=== PATIENT | female | born 1965 | race Caucasian/White ===

== ENCOUNTER 2018-05-15 13:27 | Inpatient (IN) | payer OTHER ==
[2018-05-12 14:45] LABS: BASOPHILS % 0.4 % (0.0-1.0); EOSINOPHILS # (AUTO) 0.2 (0.0-0.4); EOSINOPHILS % 3.1 % (0.0-6.0); HEMATOCRIT 42.4 % (34.2-44.1); HEMOGLOBIN 14.7 g/dL (12.0-16.0); LYMPHOCYTES % 27.4 % (18.0-39.1); MEAN CORPUSCULAR HEMOGLOBIN 32.3 pg (28-32); MEAN CORPUSCULAR HGB CONC 34.7 g/dL (31-35); MEAN CORPUSCULAR VOLUME 93.2 fL (81-99); MONOCYTES # (AUTO) 0.5 (0.2-0.8); MONOCYTES % 6.9 % (4.4-11.3); NEUTROPHILS # (AUTO) 4.4 (2.1-6.9); NEUTROPHILS % 61.9 % (38.7-80.0); PLATELET COUNT 190 x10e3/uL (140-360); RED BLOOD COUNT 4.55 x10e6/uL (3.6-5.1); RED CELL DISTRIBUTION WIDTH 11.9 % (11.7-14.4)
[~2018-05-15] VITALS: Ht 160 cm; Wt 97.5 kg
[~2018-05-15 13:27] MED LIST: CARVEDILOL12.5 MG PO; DOXAZOSIN PO; ESMOLOL HCL 100MG/10ML 10 MG/ML VIAL ONE; FIORICET PO; ISOSORBIDE DINI30 MG PO; LIPITOR40 MG PO; LOSARTAN PO; NORCO 10-325 T1 EACH PO; PRISTIQ ER100 MG PO; PROPOFOL IV EMULSION 10 MG/ML 50 ML VIAL ONE; SEROQUEL200 MG PO; XARELTO20 MG PO; XTAMPZA PO
[2018-05-15] MEDS ORDERED: FENTANYL CITRATE/PF 100MCG/2 ML INJ ONE ×2 (13:38→17:17)
[2018-05-15] MEDS ORDERED: MIDAZOLAM HCL 5MG/ML 2ML VIAL ONE (13:38)
[2018-05-15] MEDS ORDERED: MIDAZOLAM HCL 2 MG/2 ML VIAL ONE (13:38)
[2018-05-15] MEDS ORDERED: HYDROMORPHONE 2MG/ML 2 MG/ML ML ONE (17:39)
[2018-05-15] MEDS ORDERED: AMIODARONE HCL 900 MG in DEXTROSE 5 % 500ML BOTTLE 500 ML IV SCH (18:30)
[2018-05-15] MEDS ORDERED: AMIODARONE HCL 150 MG in DEXTROSE 5% 100ML 100 ML IV ONE (18:30)
[2018-05-15] MEDS ORDERED: AMIODARONE HCL 900 MG in DEXTROSE 5 % 500ML BOTTLE 500 ML IV ONE (18:30)
--- NOTE | 2018-05-15 18:31 | Operative Report ---
DATE OF PROCEDURE: May 15, 2018 REFERRING PHYSICIAN: Dr. Liv Ruiz. PROCEDURES PERFORMED 1. Esophagogastroduodenoscopy with biopsies. 2. Colonoscopy with polypectomy. INDICATIONS FOR EGD: Acid reflux. INDICATIONS FOR COLONOSCOPY: Colorectal cancer screening. MEDICATION: Patient was done under MAC. Please see anesthesiologist's note. PROCEDURE: With patient in left lateral decubitus position, the flexible fiberoptic Olympus gastroscope was introduced into the esophagus under direct visualization without any difficulty. There was some patchy erythema noted in distal esophagus. A minute nodule was noted at the GE junction that was biopsied. The scope was then advanced with ease into the stomach traversing a small sliding hiatal hernia. Mucosa overlying the antrum and the body revealed some patchy erythema and noit-vj-wzffndvi edema and biopsies were obtained and sent to stain for H. pylori. Pylorus appeared to be of normal contour and shape, was intubated with ease and the scope was advanced all the way to the 2nd portion of the duodenum. Biopsies were obtained from the proximal 2nd portion and the duodenal bulb to rule out sprue. The scope was then withdrawn back into the stomach and retroflexed. Mucosa overlying the fundus and the cardia appeared to be within normal limits. The scope was then straightened out and was subsequently withdrawn. Patient tolerated the procedure well. IMPRESSION 1. Mild distal esophagitis. 2. Minute nodule at gastroesophageal junction, biopsied. 3. Small sliding hiatal hernia. 4. Gastritis, biopsied. Biopsies sent to stain for Helicobacter pylori. 5. Rule out sprue. PLAN: Follow up histology. Initiate Protonix 40 mg 1 p.o. q.a.m. a.c. Patient was then turned around and after adequate lubrication of the anal canal, a flexible fiberoptic Olympus colonoscope was inserted into the rectum and advanced all the way to the cecum. Procedure was somewhat difficult as patient was not adequately sedated for the most part and at times was thrashing during the procedure. Visualization of the colon was suboptimal. The scope was then withdrawn slowly whatever was visualized. The mucosa overlying the cecum and the ascending colon appeared to be within normal limits. Two polyps were snared from the transverse colon. The descending appeared to be within normal limits. The sigmoid colon polyp was hot biopsied. The rectum grossly appeared to be within normal limits. The scope was then retroflexed into the distal rectum and small internal hemorrhoids were noted, none of which was actively bleeding. The scope was then straightened out and was subsequently withdrawn. Patient tolerated the procedure well. IMPRESSION 1. Examination was suboptimal as patient could not be sedated well and at times was thrashing around during the procedure. Visualization of the colon was suboptimal. 2. Transverse colon polyps x2, snared. 3. Sigmoid colon polyp x1, hot biopsied. 4. Internal hemorrhoids, none actively bleeding. PLAN: Follow up histology. Initiate high-fiber low-fat diet. Initiate high-fiber supplement. Patient might benefit from a followup colonoscopy in 3 years. Job#: [id number] MARCIA cc:LIV RUIZ MD
[2018-05-15 19:00] VITALS: BP_SYST 131; BP_SYST 133; BP_DIAS 101; BP_DIAS 73
[2018-05-15] MEDS ORDERED: HYDROCODONE/APAP 10MG-325MG TAB PO PRN (19:15)
[2018-05-15 19:30] VITALS: BP 133/72
[2018-05-15] MEDS ORDERED: HOME MEDICATION--PATIENTS OWN PO SCH ×2 (19:30)
[2018-05-15] MEDS ORDERED: ACETAMIN/BUTALBITAL/CAFFEINE TAB PO PRN (19:30)
[2018-05-15] MEDS ORDERED: CARVEDILOL 12.5 MG TAB PO ONE (19:30)
[2018-05-15 20:00] VITALS: BP 133/73
[2018-05-15 21:00] VITALS: BP 146/132
[2018-05-15] MEDS ORDERED: QUETIAPINE FUMARATE 100 MG TAB PO SCH (21:00)
[2018-05-15] MEDS ORDERED: RIVAROXABAN 20 MG TABLET PO SCH (21:00)
[2018-05-15] MEDS: HOME MEDICATION--PATIENTS OWN PO SCH (21:00)
[2018-05-15] MEDS ORDERED: ATORVASTATIN 40 MG TAB PO SCH (21:00)
[2018-05-15 22:00] VITALS: BP 146/71
[2018-05-15 23:00] VITALS: BP 93/68
[2018-05-16] VITALS (19 sets, daily range): BP systolic 78–129; BP diastolic 42–102
[2018-05-16] MEDS ORDERED: AMIODARONE HCL 900 MG in DEXTROSE 5 % 500ML BOTTLE 500 ML IV SCH (00:30)
[2018-05-16] MEDS ORDERED: HYDROCODONE/APAP 10MG-325MG TAB PO PRN (07:15)
--- NOTE | 2018-05-16 08:33 | History and Physical ---
HPI: Patient is Holli Alvarez, who was undergoing a colonoscopy and patient after colonoscopy procedure developed atrial fibrillation with rapid ventricular response. Patient was admitted to the ICU for amiodarone drip and continuous care post colonoscopy. PAST MEDICAL HISTORY: History of hyperlipidemia, history of hypertension, history of AFib with RVR, history of chronic low back pain, history of bipolar disease, and history of strokes. The patient has had 7 strokes in total and patient had been recently put on cardiac monitoring and was found to have transient AFib and was started on Xarelto. MEDICATIONS: Patient's medications at home are; 1. Atorvastatin 40 mg. 2. Carvedilol 12.5 mg twice a day. 3. History of taking Pristiq ER 100 mg daily. 4. Hydrocodone 10/325 for continuous low back pain. 5. Isosorbide dinitrate. 6. Quetiapine. 7. Xarelto 20 mg for AFib. 8. Doxazosin. 9. Fioricet for headaches. 10. Losartan also. 11. The patient also takes Xtampza daily. PAST SURGICAL HISTORY: History of appendectomy, history of hysterectomy, and history of bone tumors removed. FAMILY HISTORY: History of stomach cancer in mother and also history of colon cancer in the family. SOCIAL HISTORY: Currently nonsmoker. No EtOH. No IV drug abuse. REVIEW OF SYSTEMS: Negative for chest pain. Positive for palpitations after the procedure. No nausea, vomiting, or diarrhea. No constipation. No rectal bleeding. No hematochezia, no hematemesis either. PHYSICAL EXAMINATION VITAL SIGNS: Temperature is afebrile, respirations of 20, blood pressure is 126/69, pulse oximetry 100%. Patient is running 74, normal sinus rhythm at this time. The patient converted yesterday with amiodarone. HEENT: Normocephalic, atraumatic. Pupils react to light and accommodation. CVS: S1, S2 normal. Regular rate and rhythm. ABDOMEN: Nontender, nondistended. EXTREMITIES: No clubbing, no cyanosis, and no edema. ASSESSMENT: Status post endoscopy with atrial fibrillation with rapid ventricular response. PLAN: Patient was on amiodarone drip, is off of it right now. The plan is to restart her home medications including a beta-blockade and her Xarelto. Continue with pain management for low back pain. Possible discharge today on beta-blockade and Xarelto. Patient will follow up with her sales order processor as an outpatient. Her sales order processor is in the [facility] area according to her. We will continue to monitor the patient. Further recommendations per clinical course. Job#: [id number] KARINE
[2018-05-16] MEDS ORDERED: CARVEDILOL 12.5 MG TAB PO SCH (09:00)
[2018-05-16] MEDS ORDERED: DESVENLAFAXINE SUCCINATE 50 MG TAB.SR.24H PO SCH ×2 (09:00)
[2018-05-16] MEDS ORDERED: ISOSORBIDE DINITRATE 20 MG TAB PO SCH (09:00)
[2018-05-16] MEDS ORDERED: NON-FORMULARY MEDICATION (Isosorbide Dinitrate 30 MG) PO SCH (09:00)
[2018-05-16] MEDS ORDERED: ISOSORBIDE MONONITRATE 30 MG TAB CR PO SCH (09:00)
[2018-05-16] MEDS ORDERED: DESVENLAFAXINE SUCCINATE 100 MG PO SCH (09:00)
[2018-05-16] MEDS: DOXAZOSIN MESYLATE 2 MG TAB PO SCH ×2 (09:04→16:19)
[2018-05-16] MEDS: CARVEDILOL 12.5 MG TAB PO SCH ×2 (09:05→16:19)
[2018-05-16] MEDS: HOME MEDICATION--PATIENTS OWN PO SCH (10:45)
[2018-05-16] MEDS ORDERED: LOSARTAN-HCTZ1 EAC1 PO (11:34)
[2018-05-16 16:26] LABS: ALANINE AMINOTRANSFERASE 12 IU/L (0-55); ALBUMIN 3.5 g/dL (3.5-5.0); ALBUMIN/GLOBULIN RATIO 1.3 (0.8-2.0); ALKALINE PHOSPHATASE 93 IU/L (40-150); ANION GAP 15.1 mmol/L (8-16); BLOOD UREA NITROGEN 13 mg/dL (7-26); BUN/CREATININE RATIO 16 (6-25); CALCIUM 9.2 mg/dL (8.4-10.2); CARBON DIOXIDE 30 mmol/L (22-29); CHLORIDE 98 mmol/L (98-107); CREATININE, SERUM 0.81 mg/dL (0.57-1.11); EST GLOMERULAR FILTRATION RATE > 60 ML/MIN (60-); GLUCOSE 99 mg/dL (74-118); MAGNESIUM 1.8 MG/DL (1.3-2.1); POTASSIUM 3.1 mmol/L (3.5-5.1); SODIUM 140 mmol/L (136-145)
[2018-05-16 16:45] LABS: THYROID STIMULATING HORMONE 0.635 uIU/mL (0.350-4.940)
[2018-05-16] MEDS ORDERED: POTASSIUM CHLORIDE 20 MEQ TAB CR PO NR (17:00)
[2018-05-16] MEDS ORDERED: MAGNESIUM OXIDE 400 MG TAB PO NR (17:00)
--- NOTE | 2018-05-16 18:17 | Consultation ---
DATE OF CONSULTATION: CARDIOLOGY CONSULTATION REASON FOR CONSULTATION: Atrial fibrillation. HISTORY OF PRESENT ILLNESS: This is a 53-year-old woman with history of hypertension, hyperlipidemia, diabetes mellitus, paroxysmal atrial fibrillation, currently with an implantable loop recorder in place, chronic migraines, chronic pain, anxiety, and depression, who presented as an outpatient for endoscopy. After colonoscopy, she developed atrial fibrillation with rapid ventricular response and was initiated on amiodarone infusion. She is on chronic Xarelto for anticoagulation needs and stroke risks reduction. The patient converted to normal sinus rhythm overnight and amiodarone infusion was discontinued. She is currently feeling well. Denies any cardiovascular symptoms. She denies any chest pain, palpitations, shortness of breath, PND, orthopnea, or syncopal events. She formally was seen by a prior cut pressman; however, she states that she no longer wants to follow with them at this point in time. She denies any history of myocardial infarctions, heart failure, or valvular heart disease. She has not undergone any procedures for her atrial fibrillation such as cardioversion or cardiac ablations. REVIEW OF SYSTEMS: Twelve-point review of systems was conducted and was negative except as above in the HPI. PAST MEDICAL HISTORY: Hypertension, hyperlipidemia, chronic migraines, anxiety, depression, paroxysmal atrial fibrillation. PAST SURGICAL HISTORY: Endoscopy, colonoscopy, appendectomy. FAMILY HISTORY: No premature coronary artery disease or sudden cardiac . SOCIAL HISTORY: No current illicit drug use, alcohol use or tobacco use. ALLERGIES: TETRACYCLINE, LATEX. MEDICATIONS: See medication reconciliation form. PHYSICAL EXAMINATION VITALS: Temperature is 99.8, heart rate is 74, respirations are 17, blood pressure is 122/55, oxygen saturation is 95% on room air. GENERAL: She is a well-appearing, obese woman lying comfortably in bed. HEENT: Head is normocephalic, atraumatic. Eyes; the extraocular movements are intact. Conjunctiva is clear. NECK: No JVD. No bruits. CARDIOVASCULAR: Regular rate and rhythm. LUNGS: Clear to auscultation bilaterally. No wheezing. No rales. ABDOMEN: Soft, nontender, nondistended. Normoactive bowel sounds. EXTREMITIES: No clubbing, cyanosis, or edema. VASCULAR: 2+ pulses. SKIN: Warm, dry, and intact. NEUROLOGIC: No focal deficits noted. Cranial nerves grossly intact. PSYCHIATRIC: Normal mood and affect. LABORATORY DATA: Only consists of a CBC which was within normal limits. CMP, magnesium, and TSH are pending. IMPRESSION 1. Paroxysmal atrial fibrillation. 2. Hypertension. 3. Hyperlipidemia. 4. Obesity. 5. Nausea, vomiting, and weight loss. RECOMMENDATIONS: Currently, the patient is within normal sinus rhythm, on carvedilol. We will try to avoid amiodarone as she is 53 years old and long-term side effects will be greater. We will check a CMP, magnesium and TSH to ensure no acute reversible causes. We will ensure monitoring her for implantable loop recorder as an outpatient. Continue Xarelto for her stroke risk reduction. If laboratory data were within normal limits, patient may be discharged with further outpatient monitoring and workup. Job#: [id number] LILY
[2018-05-16] MEDS ORDERED: ATORVASTATIN 40 MG TAB PO SCH (21:00)
[2018-05-16] MEDS ORDERED: QUETIAPINE FUMARATE 100 MG TAB PO SCH (21:00)
[2018-05-16] MEDS ORDERED: OXYCODONE HCL 10 MG TAB CR PO SCH (21:00)
[2018-05-16] MEDS ORDERED: QUETIAPINE FUMARATE 200 MG PO SCH (21:00)
[2018-05-16] MEDS ORDERED: NON-FORMULARY MEDICATION (Atorvastatin Calcium (Lipitor) 40 MG) PO SCH (21:00)
[2018-05-16] MEDS ORDERED: RIVAROXABAN 20 MG TABLET PO SCH (21:00)
[2018-05-16] MEDS ORDERED: OXYCODONE HCL 20 MG TAB CR PO SCH (21:00)
[2018-05-17] MEDS ORDERED: LOSARTAN POTASSIUM 100 MG TAB PO SCH (09:00)
[2018-05-17] MEDS ORDERED: HYDROCHLOROTHIAZIDE 25 MG TAB PO SCH (09:00)
== END 2018-05-16 18:02 | disposition home or self-care (01) | DRG 315 ==
LOC: OR 13:27 → PACU V 17:32 → OBSVTOIN 18:29 → ICU 19:06
PROVIDERS: ADMIT Family Medicine; ATTEND Family Medicine
PROC: 0DBN8ZX Excision of Sigmoid Colon, Via Natural or Artificial Opening Endoscopic, Diagnostic (ICD-10-PCS; 2018-05-15)
PROC: 0DB48ZX Excision of Esophagogastric Junction, Via Natural or Artificial Opening Endoscopic, Diagnostic (ICD-10-PCS; principal; 2018-05-15 15:59)
PROC: 0DB68ZX Excision of Stomach, Via Natural or Artificial Opening Endoscopic, Diagnostic (ICD-10-PCS; 2018-05-15 15:59)
PROC: 0DBL8ZX Excision of Transverse Colon, Via Natural or Artificial Opening Endoscopic, Diagnostic (ICD-10-PCS; 2018-05-15 15:59)
DX: I97.191 Other postprocedural cardiac functional disturbances following other surgery (principal); Z95.811 Presence of heart assist device; I10 Essential (primary) hypertension; E78.5 Hyperlipidemia, unspecified; F31.9 Bipolar disorder, unspecified; Z86.73 Personal history of transient ischemic attack (TIA), and cerebral infarction without residual deficits; Z79.01 Long term (current) use of anticoagulants; I48.0 Paroxysmal atrial fibrillation; E66.9 Obesity, unspecified; K21.0 Gastro-esophageal reflux disease with esophagitis; K44.9 Diaphragmatic hernia without obstruction or gangrene; K29.70 Gastritis, unspecified, without bleeding; K63.5 Polyp of colon; K64.8 Other hemorrhoids; Z68.38 Body mass index [BMI] 38.0-38.9, adult
CPT/HCPCS: 36415; 43239; 45384; 45385; 80053; 83735; 84443; 85025; 93005; J2250

== ENCOUNTER → 2018-06-30 | Outpatient (CLI) | payer OTHER ==
[~2018-06-30] MED LIST changes: +DIATRIZOATE MEGL/DIATRIZOA SOD 30 ML BTL PO ONE; -ESMOLOL HCL 100MG/10ML 10 MG/ML VIAL ONE; +IOPAMIDOL 370 MG/ML 200 ML INFUS..BTL INJ ONE; +LOSARTAN-HCTZ1 EAC1 PO; -PROPOFOL IV EMULSION 10 MG/ML 50 ML VIAL ONE; +SODIUM CHLORIDE 0.9% 50ML 50 ML ONE
[2018-06-30 13:59] LABS: BASOPHILS % 0.4 % (0.0-1.0); EOSINOPHILS # (AUTO) 0.3 (0.0-0.4); EOSINOPHILS % 3.6 % (0.0-6.0); HEMOGLOBIN 13.3 g/dL (12.0-16.0); LYMPHOCYTES # (AUTO) 1.6 (1.0-3.2); MEAN CORPUSCULAR HEMOGLOBIN 31.5 pg (28-32); MEAN CORPUSCULAR HGB CONC 34.1 g/dL (31-35); MEAN CORPUSCULAR VOLUME 92.4 fL (81-99); MONOCYTES # (AUTO) 0.4 (0.2-0.8); NEUTROPHILS # (AUTO) 4.8 (2.1-6.9); NEUTROPHILS % 67.6 % (38.7-80.0); PLATELET COUNT 190 x10e3/uL (140-360); RED BLOOD COUNT 4.22 x10e6/uL (3.6-5.1); RED CELL DISTRIBUTION WIDTH 11.9 % (11.7-14.4)
[2018-06-30 14:12] LABS: ALANINE AMINOTRANSFERASE 12 IU/L (0-55); ALBUMIN/GLOBULIN RATIO 1.3 (0.8-2.0); ALKALINE PHOSPHATASE 104 IU/L (40-150); ANION GAP 10.1 mmol/L (8-16); BLOOD UREA NITROGEN 7 mg/dL (7-26); BUN/CREATININE RATIO 9 (6-25); CALCIUM 9.1 mg/dL (8.4-10.2); CARBON DIOXIDE 29 mmol/L (22-29); CHLORIDE 98 mmol/L (98-107); CREATININE, SERUM 0.76 mg/dL (0.57-1.11); EST GLOMERULAR FILTRATION RATE > 60 ML/MIN (60-); GLUCOSE 93 mg/dL (74-118); POTASSIUM 3.1 mmol/L (3.5-5.1); SODIUM 134 mmol/L (136-145)
--- NOTE | 2018-06-30 18:04 | Diagnostic Imaging Report ---
EXAM: CT Abdomen and Pelvis WITH contrast INDICATION: Right upper quadrant pain. COMPARISON: None. TECHNIQUE: Abdomen and pelvis were scanned utilizing a multidetector helical scanner from the lung base to the pubic symphysis after administration of IV contrast. Coronal and sagittal reformations were obtained. Routine protocol was performed. Scan was performed when during portal venous phase. IV CONTRAST: 100 cc of Isovue 370. ORAL CONTRAST: Water COMPLICATIONS: None RADIATION DOSE: Total DLP: 746.6 mGy*cm Dose modulation, iterative reconstruction, and/or weight based adjustment of the mA/kV was utilized to reduce the radiation dose to as low as reasonably achievable. FINDINGS: LINES and TUBES: None. LOWER THORAX: Unremarkable HEPATOBILIARY: Diffuse mild fatty liver. No evidence of focal lesion. No biliary ductal dilation. GALLBLADDER: No radio-opaque stones or sludge. No wall thickening. SPLEEN: No splenomegaly. PANCREAS: No focal masses or ductal dilatation. ADRENALS: No adrenal nodules KIDNEYS/URETERS: Kidneys enhance symmetrically. No evidence of hydronephrosis, solid mass, or stone. GI TRACT: No evidence of wall thickening or distension. Appendix is not clearly identified, and may be absent. PELVIC ORGANS/BLADDER: Unremarkable. LYMPH NODES: No lymphadenopathy. VESSELS: Scattered atherosclerotic changes of the abdominal aorta and branch vessels. PERITONEUM / RETROPERITONEUM: No free air or fluid. BONES AND SOFT TISSUES: Unremarkable. CONCLUSION: Diffuse mild fatty liver. No CT evidence of cholelithiasis or cholecystitis. Signed by: Dr. Rodrigo Da Silva MD on 06/30/2018 6:00 PM
== END ==
LOC: CT 13:00
PROVIDERS: ATTEND Surgery
DX: R10.11 Right upper quadrant pain (principal)
CPT/HCPCS: 36415; 74177; 80053; 85025; 93005; 93306; Q9967

== ENCOUNTER → 2018-07-03 | Day surgery (SDC) | payer OTHER ==
[~2018-07-03] MED LIST changes: +BUPIVACAINE 0.25%/EPI 30ML SDV INJ ONE; +DESFLURANE 240 ML BTL INH ONE; +DEXAMETHASONE SOD PHOS INJ 4 MG/ML VIAL ONE; -DIATRIZOATE MEGL/DIATRIZOA SOD 30 ML BTL PO ONE; +FENTANYL CITRATE/PF 100MCG/2 ML INJ ONE; +GLYCOPYRROLATE INJ 1MG/ 5 ML SYR ONE; +HYDROMORPHONE 2MG/ML 2 MG/ML ML ONE; -IOPAMIDOL 370 MG/ML 200 ML INFUS..BTL INJ ONE; +KETOROLAC TROMETHAMINE 30 MG/ML VIAL ONE; +LIDOCAINE HCL 2% LOCAL INJ 5 ML SDV VIAL INJ ONE; +MIDAZOLAM HCL 2 MG/2 ML VIAL ONE; +NEOSTIGMINE 5 MG/5ML SYR ONE; +ONDANSETRON HCL INJ 2MG/ML 2ML 2 MG/ML VIAL ONE; +PROPOFOL IV EMULSION 10 MG/ML 20 ML VIAL ONE; +ROCURONIUM BROMIDE 10 MG/ML 5ML VIAL ONE; -SODIUM CHLORIDE 0.9% 50ML 50 ML ONE
--- OUTSIDE RECORDS SUMMARY | 2018-07-03 07:01 | XMS REPORT ---
Author Author [facility] Address Unknown Phone Unavailable Care Team Providers Care Transport Engineer Name Role Phone MARK ZAVALA Unavailable Unavailable Payers Payer Name Policy Type Policy Number Effective Date Expiration Date Problems This patient has no known problems. Allergies, Adverse Reactions, Alerts Allergy Name Allergy Type Status Severity Reaction(s) Onset Date Inactive Date Treating Clinician Comments nifedipine DA Active 2016-07-05 00:00:00 aspirin DA Active 2016-07-05 00:00:00 tetracycline DA Active SV 2016-07-05 00:00:00 sulfamethoxazole DA Active SV 2016-07-05 00:00:00 trimethoprim DA Active SV 2016-07-05 00:00:00 latex DA Active SV 2016-07-05 00:00:00 apples DA Active SV 2016-06-28 00:00:00 Medications This patient has no known medications. Results Test Description Test Time Test Comments Text Results Atomic Results Result Comments CT ABDOMEN/PELVIS W 2018-06-30 17:53:00 [place] [address] Patient Name: DON HI MR #: [id number] : 1965 Age/Sex: 53/F Req #: [id number] Adm Physician: Ordered by: MARK ZAVALA MD Report #: [id number] Location: [place] Room/Bed: Procedure: [id number] CT/CT ABDOMEN/PELVIS W Exam Date: 06/30/18 Exam Time: 1420 REPORT STATUS: Signed EXAM: CT Abdomen and Pelvis WITH contrast INDICA TION: Right upper quadrant pain. COMPARISON: None. TECHNIQUE: Abdomen and pelvis were scanned utilizing a multidetector helical scanner from the lung base to the pubic symphysis after administration of IV contrast. Coronal and sagittal reformations were obtained. Routine protocol was performed. Scan was performed when during portal venous phase. IV CONTRAST: 100 cc of Isovue 370. ORAL CONTRAST: Water COMPLICATIONS: None RADIATION DOSE: Total DLP: 746.6 mGy*cm Dose modulation, iterative reconstruction, and/or weight based adjustment of the mA/kV was utilized to reduce the radiation dose to as low as reasonably achievable. FINDINGS: LINES and TUBES: None. LOWER THORAX: Unremarkable HEPATOBILIARY: Diffuse mild fatty liver. No evidence of focal lesion. No biliary ductal dilation. GALLBLADDER: No radio-opaque stones or sludge. No wall thickening. SPLEEN: No splenomegaly. PANCREAS: No focal ma sses or ductal dilatation. ADRENALS: No adrenal nodules KIDNEYS/URETERS: Kidneys enhance symmetrically. No evidence of hydronephrosis, solid mass, or stone. GI TRACT: No evidence of wall thickening or distension. Appendix is not clearly identified, and may be absent. PELVIC ORGANS/BLADDER: Unremarkable. LYMPH NODES: No lymphadenopathy. VESSELS: Scattered atherosclerotic changes of the abdominal aorta and branch vessels. PERITONEUM / RETROPERITONEUM: No free air or fluid. BONES AND SOFT TISSUES: Unremarkable. CONCLUSION: Diffuse mild fatty liver. No CT evidence of cholelithiasis or cholecystitis. Signed by: Dr. Gorge Mcelroy MD on 06/30/2018 6:00 PM Dictated By: GORGE MCELROY MD 1800 Transcribed By: ANABELLE on 06/30/18 1800 COPY TO: MARK ZAVALA MD CPK-MB PROFILE 2018-06-27 05:20:00 CREATINE KINASE (CK) (test code=CK) 91 Unit/L 26-192 CKMB (test code=CKMBT) 1.0 NG/ML 0.0-4.9 RELATIVE % INDEX (test code=REL%) 1.0 % 0.0-2.5 Completed by Nursing: [id number] 05:20:00* Test Item Value Reference Range Comments TROPONIN-I (test code=TROPI) < 0.015 NG/ML 0.000-0.045 Negative: </=0.045 Positive: >/=0.046 Correlation with serial results, other cardiac markers, and clinical findings is necessary to determine the clinical significance of this result. Quantitative results using different methodologies should not be compared to one another as numerical results may varyby method. Completed by Nursing: NOCPK-MB [id number] 00:29:00* Test Item Value Reference Range Comments CREATINE KINASE (CK) (test code=CK) 94 Unit/L 26-192 CKMB (test code=CKMBT) 1.2 NG/ML 0.0-4.9 RELATIVE % INDEX (test code=REL%) 1.2 % 0.0-2.5 Completed by Nursing: [id number] 00:29:00* Test Item Value Reference Range Comments TROPONIN-I (test code=TROPI) < 0.015 NG/ML 0.000-0.045 Negative: </=0.045 Positive: >/=0.046 Correlation with serial results, other cardiac markers, and clinical findings is necessary to determine the clinical significance of this result. Quantitative results using different methodologies should not be compared to one another as numerical results may varyby method. Completed by Nursing: NO- DUP EXTRACRANIAL [id number] 23:41:00 Name: DON HI [facility] [place] : 1965 Age/S: 53 / F [address] [place] Unit #: [id number] Loc: [place] [address] Phys: Kari Hernadez MD Acct: [id number] Di s Date: Status: ADM IN PHONE #: Exam Date: 06/26/2018 1938 FAX #: Reason: TIA EXAMS: CPT: [id number] DUP EXTRACRAN IAL PADMAJA [id number] HISTORY: TIA TECHNIQUE: Grayscale real-time B-mode imaging with spectral and color flow Doppler analysis was performed of the neck to evaluate the ext racranial carotid system. Degree of stenosis is based on velocity criteria as defined by the Society of Radiologist in Ultrasound Consensus Conferen ce Radiology 2003 FINDINGS: The peak systolic velocities and IC/CC ratios are within normal limits bilaterally. T here is mild scattered atherosclerotic plaque demonstrated with no hemodyn amically significant stenosis. Antegrade flow seen in both vertebr al arteries. IMPRESSION: 1. No hemodyn amically significant stenosis demonstrated. at 2341 Reported and signed by: Gadiel Mahan M.D. CC: Seth Hernadez MD Technologist: Taniya Alcantara Trnscb Date/Time: 06/26/2018 (9061) [email or web address] PAGE 1 Signed Report Name: DON BUSTAMANTE [facility] : [birth year] Age/S: 53 / F [id number] [place] Unit #: [id number] Loc: [place] [address] Phys: Seth Hernadez MD Acct: [id number] Dis Date: Status: ADM IN PHONE #: [phone] Exam Date: 06/26/20181934 FAX #: Reason: TIA EXAMS: CPT: [id number] DUP EXTRACRANIAL P[place]MAJA [id number] <Continued> Orig Print D/T: S: 06/26/2018 (8377) Probe: PAGE 2 Signed Report BASIC METABOLIC [id number] 17:54:00* Test Item Value Reference Range Comments SODIUM (test code=NA) 139 mmol/L 134-147 POTASSIUM (test code=K) 3.4 mmol/L 3.4-5.0 CHLORIDE (test code=CL) 104 mmol/L 100-108 CARBON DIOXIDE (test code=CO2) 27 mmol/L 21-32 ANION GAP (test code=GAP) 8.0 GAP calc 4.0-15.0 GLUCOSE (test code=GLU) 92 MG/DL 70-110 BLOOD UREA NITROGEN (test code=BUN) 10 MG/DL 7-18 GLOMERULAR FILTRATION RATE (test code=GFR) >=60 max estimate estGFR >60 CREATININE (test code=CREAT) 0.8 MG/DL 0.6-1.0 CALCIUM (test code=CA) 8.9 MG/DL 8.5-10.1 Completed by Nursing: NAYALIPID PROFILE (CORONARY RISK)2018-06-26 17:54:00* Test Item Value Reference Range Comments TRIGLYCERIDES (test code=TRIG) 162 MG/DL 0-150 CHOLESTEROL (test code=CHOL) 150 MG/DL 133-200 CHOLESTEROL/HDL RATIO (test code=CHOLHDL) 2.42 RATIO >0 HDL CHOLESTEROL (test code=HDL) 62 MG/DL 40-59 NON-HDL CHOLESTEROL (test code=NHDL) 88 mg/dL <130 LIPOPROTEIN LDL (test code=LDL) 67 MG/DL 0-129 LDL/HDL (test code=LDL/HDL) 1.08 Ratio 1.48-3.22 Avg Completed by Nursing: NOCPK-MB [id number] 17:54:00* Test Item Value Reference Range Comments CREATINE KINASE (CK) (test code=CK) 102 Unit/L 26-192 CKMB (test code=CKMBT) 1.3 NG/ML 0.0-4.9 RELATIVE % INDEX (test code=REL%) 1.2 % 0.0-2.5 Completed by Nursing: [id number] 17:54:00* Test Item Value Reference Range Comments TROPONIN-I (test code=TROPI) < 0.015 NG/ML 0.000-0.045 Negative: </=0.045 Positive: >/=0.046 Correlation with serial results, other cardiac markers, and clinical findings is necessary to determine the clinical significance of this result. Quantitative results using different methodologies should not be compared to one another as numerical results may varyby method. Completed by Nursing: [id number] 17:54:00* Test Item Value Reference Range Comments GLYCOSYLATED HEMOGLOBIN (HA1C) (test code=GLYHGB) 5.4 % A1C 4.2-6.3 ESTIMATED AVERAGE GLUCOSE (test code=EAG) 108 MG/DLest CBC W/AUTO [id number] 17:29:00* Test Item Value Reference Range Comments WHITE BLOOD CELL (test code=WBC) 5.8 K/mm3 3.5-11.0 RED BLOOD CELL (test code=RBC) 4.00 M/mm3 4.70-6.10 HEMOGLOBIN (test code=HGB) 12.7 G/DL 10.4-14.9 HEMATOCRIT (test code=HCT) 37.4 % 31.5-44.1 MEAN CELL VOLUME (test code=MCV) 93.5 Fl 84.5-98.6 MEAN CELL HGB (test code=MCH) 31.8 pg 27.0-34.2 MEAN CELL HGB CONCETRATION (test code=MCHC) 34.0 G/DL 31.5-34.0 RED CELL DISTRIBUTION WIDTH (test code=RDW) 12.2 SD 11.5-14.5 PLATELET COUNT (test code=PLT) 184.0 K/mm3 150-450 MEAN PLATELET VOLUME (test code=MPV) 9.30 fL 7.0-10.5 NEUTROPHIL % (test code=NT%) 58.0 % 40-76 LYMPHOCYTE % (test code=LY%) 30.0 % 20.5-51.1 MONOCYTE % (test code=MO%) 8.3 % 1.7-9.3 EOSINOPHIL % (test code=EO%) 3.4 % 0.0-6.0 BASOPHIL % (test code=BA%) 0.3 % 0.0-2.0 NEUTROPHIL # (test code=NT#) 3.36 K/mm3 1.8-7.6 LYMPHOCYTE # (test code=LY#) 1.7 K/mm3 0.6-3.2 MONOCYTE # (test code=MO#) 0.5 K/mm3 0.3-1.1 EOSINOPHIL # (test code=EO#) 0.2 K/mm3 0.0-0.4 BASOPHIL # (test code=BA#) 0.0 K/mm3 0.0-0.1 MANUAL DIFF REQUIRED (test code=MDIFF) NO DIFF/SCN CRITERIA - MRI BRAIN W/O [id number] 17:10:00 FAX: Seth Hernadez MD [phone] Camps: PM St: ADM Name: DON BUSTAMANTE : [birth year] Age/S: 53/F [id number] [address] [place] Unit #: [id number] Loc: [address] [address] Phys: Seth Hernadez MD Acct: [id number] Dis Date: Status: ADM IN PHONE #: [phone] Exam Date: 06/26/2018 9481 FAX #: Reason: TIA EXAMS: CPT: [id number] MRI BRAIN W/O CONTRAST 44168 R16 - MRI BRAIN W/O CONTRAST HISTORY: TIA TECHNIQUE: Multiplanar mult isequence MR images of the brain were obtained without intravenous contras t. COMPARISON: None FINDINGS: Chronic lacunar infarction versus prominent perivascular space in the right lentif orm nucleus. There is no mass, mass effect or abnormal extra-axial fluid c ollection. Diffusion-weighted images show no hyperacute, acute or early rodriguez bacute infarction. The ventricles are normal in size, shape, and position. There are normal signal voids in the larger intracran ial vessels. Moderate mucosal thickening in the paranasal sinuses associated with some aerated secretions. The marrow signal pattern is wit hin normal limits. IMPRESSION: N o significant intracranial abnormalities. Findings compatible with acute sinusitis in the appropriate clinical setting. Electronical ly Signed by Ben Rush on 06/26/2018 at 1710 Rep orted and signed by: Merrick Rush M.D. CC: Seth Hernadez MD Technologist: Nohelia Toscano, RT(R)(MR) Transcribed Date/Time/By: 06/26/2018 (0510) :[email or web address] Orig Print D/T: S: 06/26/2018 (3482) PAGE 1 Signed Report
[2018-07-03 11:40] VITALS: BP 133/76
--- NOTE | 2018-07-06 05:03 | Operative Report ---
DATE OF PROCEDURE: 07/03/2018 SURGEON: Yaron Hill MD PREOPERATIVE DIAGNOSIS: Chronic acalculous cholecystitis. Right upper quadrant pain. POSTOPERATIVE DIAGNOSIS: Chronic acalculous cholecystitis. Right upper quadrant pain. PROCEDURE PERFORMED: Laparoscopic cholecystectomy. ANESTHESIA: General. ESTIMATED BLOOD LOSS: Minimal. DRAINS: None. COMPLICATION: None. INDICATIONS AND FINDINGS: The patient is a pleasant 53-year-old female, referred to the office for biliary dyskinesia. She had a longstanding history of right upper quadrant pain associated with ingestion of foods, particularly fatty foods. She had a GI workup with EGD, colonoscopy, and she had some gastritis and some polyps. She was treated for the gastritis without resolution of the pain. She had a preoperative CT scan that revealed no acute process, nothing that could explain her pain. Despite of the medical treatment for the gastritis, she persisted with the pain. The patient requested a cholecystectomy. She clearly understood that there were no guarantees made regarding the results of surgery that the pain might persist and I would then, if that occurred, refer her back to GI. INTRAOPERATIVE FINDINGS: The patient had no gallstones. There was a gallbladder that contained adhesions of the stomach to the gallbladder with some fibrosis and reaction in the area of the hepatoduodenal ligament. There was no ductal dilatation. Intraoperative findings were consistent with chronic cholecystitis, as the cystic duct was not dilated nor the common bile duct. DESCRIPTION OF PROCEDURE: With the patient lying on the operative table in the supine position and after administration of general anesthesia, she was prepped and draped for laparoscopic cholecystectomy. The procedure was begun by establishing pneumoperitoneum in the right upper quadrant midclavicular line because she was fairly obese. Pneumoperitoneum was insufflated to 15 mm of pressures and then the 10/11 trocar placed in that location. The patient was then rotated and under direct vision with the camera, we then placed an umbilical port under direct vision with the camera and finally two lateral working ports 5 mm each in the right midclavicular line and right anterior axillary line. The gallbladder was retracted cephalad using grasping forceps through the two 5 mm trocars and then the dissection was begun dissecting sharply in the stomach from the gallbladder. We identified the neck of the gallbladder and began the dissection very high in the neck of the gallbladder. We finally identified the common hepatic duct and the cystic artery. The cystic duct was short, but we were able to place three clips distally proximal to the common bile duct and then transected the cystic duct. The cystic artery was similarly transected with the titanium clips. Then we took down the gallbladder from the liver bed using a combination of electrocautery and countertraction and then detached it to remove it through the umbilical port. We then inspected the operative field. We irrigated the operative field. There was no bile leak, no bleeding, no apparent bowel injury. Then, we closed the wounds using 0-Vicryl for the umbilical fascia, 3-0 Vicryl for the subcutaneous tissue in that location as well as the subxiphoid port and the skin of all the ports was closed with hafsa. 0.25% Marcaine with epinephrine was used as local block. At the end of the case, the patient tolerated the procedure well, taken to recovery room in stable condition. MD ALBERTO Jaramillo/HIRAM /[id number]
== END | disposition home or self-care (01) ==
LOC: OR 06:58
PROVIDERS: ATTEND Surgery
DX: K81.1 Chronic cholecystitis (principal); K82.8 Other specified diseases of gallbladder; E66.9 Obesity, unspecified; I69.354 Hemiplegia and hemiparesis following cerebral infarction affecting left non-dominant side; I25.10 Atherosclerotic heart disease of native coronary artery without angina pectoris; I10 Essential (primary) hypertension; I48.91 Unspecified atrial fibrillation; K21.9 Gastro-esophageal reflux disease without esophagitis; K44.9 Diaphragmatic hernia without obstruction or gangrene; F41.9 Anxiety disorder, unspecified; Z88.6 Allergy status to analgesic agent; Z79.02 Long term (current) use of antithrombotics/antiplatelets; Z87.891 Personal history of nicotine dependence
CPT/HCPCS: 36415; 47562; 84132; 88304; C1766; J1100; J1170; J1885; J2001; J2250; J2405; J2704; J3490